=== PATIENT | female | born 1935 | race Caucasian/White ===

== ENCOUNTER 2017-10-25 21:13 | Inpatient (IN) | payer MEDICARE, OTHER ==
[2017-10-25 22:35] LABS: CKMB 1.1 ng/mL (0-6.6)
[2017-10-25 23:08] LABS: Troponin I 0.443 ng/mL (< 0.028)
[2017-10-25] MEDS ORDERED: Nitroglycerin 0.4 MG TAB (25 Tab Bottle) SL PRN (23:38)
[2017-10-25] MEDS ORDERED: Dextrose 5% in Water 1,000 ML IV PRN (23:44)
[2017-10-25] MEDS ORDERED: Dextrose 50% Abboject 50 ML SYRINGE SLOW IVP PRN (23:44)
--- NOTE | 2017-10-26 00:36 | HP ---
PRIMARY CARE PROVIDER: Gen Valdez M.D. CHIEF COMPLAINT: Fall. HISTORY OF PRESENT ILLNESS: Ms. Portillo is a pleasant 81-year-old lady, who was seen at [facility] following transfer from emergency room at [facility]. She reports that she has been "under the weather" for the last several weeks, since Mother's Day when she was treated for recurrent urinary tract infection with 3 different antibiotics. She reports inc reased frequency of urination, but denies any dysuria. Today, she spoke to a friend on the phone. Then, she went to the kitchen to get some water. She fel t nauseous and started vomiting. She stood over and could not stand up properly. She eventually los t balance and fell in a corner. She reports hitting her head. She denies any chest pain, shortness of breath, fevers, or chills. REVIEW OF SYSTEMS: All other systems reviewed and found to be negative. PAST MEDICAL HISTORY: Significant for diabetes mellitus, type 2; dyslipidemia; and hypertension. PAST SURGICAL HISTORY: Tonsillectomy, hysterectomy, tubal ligation, right knee replacement, right an kle surgery, and bilateral cataract surgery. SOCIAL HISTORY: No history of tobacco use, alcohol use, or recreational drug use. FAMILY HISTORY: Her father from myocardial infarction at age 37. CODE STATUS: I discussed her code status. She is DNR. ALLERGIES: PENICILLIN and SULFA. CURRENT MEDICATIONS: Metformin 500 mg 2 times a day, glipizide/metformin 5/500 mg 2 times a day, aml odipine/benazepril 5/20 mg daily, furosemide 20 mg every other day, Crestor 10 mg daily, Glyxambi 25/ 5 mg daily. PHYSICAL EXAMINATION: GENERAL: On examination, Ms. Portillo is awake and alert, not in acute distress. VITAL SIGNS: Blood pressure is 132/54 and pulse is 93. She is breathing at rate of 20 and saturatin g 94% on room air. She is afebrile. EYES: No scleral icterus. No conjunctival pallor. ENT: Moist mucosal membranes. No oropharyngeal erythema or exudates. NECK: Supple, nontender, normal range of movement. Trachea is midline. RESPIRATORY: Accessory muscles of breathing are not active. Chest wall movements are symmetric bila terally. LUNGS: Clear to auscultation without wheeze, rhonchi, or crepitations. CARDIOVASCULAR: S1 and S2 are heard and regular. Peripheral pulses palpable. No carotid bruit, no pericardial rub. NEUROLOGIC: Cranial nerves II-XII intact. Deep tendon reflexes are 2+. MUSCULOSKELETAL: Power is 5/5 in all 4 extremities. SKIN: No rashes or subcutaneous nodules. LYMPHATIC: No cervical lymphadenopathy. PSYCHIATRIC: Normal mood, normal affect, patient is oriented to person, place, and time. LABORATORY DATA: Ms. Portillo's labs and investigations were reviewed. I reviewed her electrocardiogr am, which shows sinus tachycardia, no ST changes to suggest an acute coronary syndrome. I also revie wed her chest x-ray, which does not show any pulmonary infiltrates. She also had a noncontrast CT sc an of the brain at [facility], I do not see a report on file, we will request the report. She had uri nary tract infection with Escherichia coli on 10/13/2017, organism is sensitive to amikacin, cefepime , ceftazidime, ceftriaxone, cefoxitin, gentamicin, meropenem, nitrofurantoin, Zosyn and Septra, but r esistant to fluoroquinolones. Laboratory investigations done at [facility] today show hyponatremia wi th sodium of 135, hypokalemia with potassium 3.1, blood urea nitrogen normal at 15.8, creatinine norm al at 0.8, total bilirubin mildly elevated at 1.3, normal alkaline phosphatase, normal AST, normal AL T, troponin I elevated at 0.369 at [facility], trending up subsequently to 0.443 at this facility, nor mal white count, normal hemoglobin, and normal platelet count. ASSESSMENT AND PLAN: Ms. Portillo is a pleasant 81-year-old lady, who was seen at [facility] on 10/26/2017. Her problem list includes: 1. Elevated troponin I: Could be [id number] myocardial infarction versus demand ischemia seco ndary to urinary tract infection. The emergency room physician has ordered Lovenox. I am waiting fo r CT scan report of the brain from [facility] room before giving her Lovenox. She will be s tarted on aspirin. She will be admitted to telemetry. Cardiology service will be consulted. A 2D e chocardiogram will also be checked. 2. Recurrent urinary tract infection: We will start the patient on ceftriaxone for now, she has aiyana hill received a dose at [facility] without any side effects. We will request fresh urine cultures and urinalysis. 3. Diabetes mellitus, type 2: Start Accu-Cheks, insulin sliding scale. 4. Hypertension: Monitor vital signs, titrate antihypertensives as needed. 5. Dyslipidemia: Continue statin. Many thanks for allowing me to participate in your patient's care. Please feel free to contact me wi th any questions or concerns. LEVEL OF RISK: High. LEVEL OF COMPLEXITY: High.
[2017-10-26] MEDS ORDERED: Enoxaparin Sodium 80 MG/0.8 ML SYRINGE SC SCH (00:45)
[2017-10-26 01:08] VITALS: BMI 24.4
[2017-10-26 01:26] LABS: Critical Call Chem Troponin I RESULT DECREASING; Troponin I 0.419 ng/mL (< 0.028)
[2017-10-26] MEDS: cefTRIAXone\\ROCEPHIN 1 GM in Sodium Chloride 0.9% 100 ML IVPB SCH (01:49)
[2017-10-26 02:11] LABS: Bilirubin Negative (Negative); Blood, Urine Moderate (Negative); Clarity CLOUDY (Clear); Glucose, Urine (Dipstick) >=1000 mg/dL (Negative); Leukocyte Moderate (Negative); Nitrite Positive (Negative); Protein, Urine (Dipstick) 100 mg/dL (Neg-Trace); Specific Gravity, Urine 1.023 (1.002-1.036); Urobilinogen 0.2 mg/dL (0.2-1.0)
[2017-10-26 02:13] LABS: Bacteria/HPF 1+ HPF (None Seen); Hyaline Casts/LPF 0-3 HYALINE CAST LPF (0-3 Hyaline); Squamous Epithelial None Seen HPF (0-3)
[2017-10-26 05:45] LABS: Anion Gap 15 mmol/L (10-20); BUN (Urea Nitrogen) 17 mg/dL (9.8-20.1); Calc. Creatinine Clearance 66 mL/min (70-130); Calcium 8.9 mg/dL (7.8-10.44); Carbon Dioxide 23 mmol/L (23-31); Cardiac Risk 1.8 (Less than 4.5); Chloride 102 mmol/L (98-107); Cholesterol 78 mg/dl (< 200 Desired); Estimated GFR-MDRD 66; Glucose 130 mg/dL (83-110); HDL Cholesterol 43 mg/dL (>60 Neg Risk); LDL Cholesterol, Calculated 25 mg/dL; Potassium 3.1 mmol/L (3.5-5.1); Sodium 137 mmol/L (136-145); Triglycerides 49 mg/dL (Less than 150)
[2017-10-26 05:47] LABS: Troponin I 0.288 ng/mL (< 0.028)
[2017-10-26 05:54] LABS: Band 35 % (5-11); Hemoglobin 10.8 g/dL (12.0-16.0); Lymphocytes 7 % (21-51); MDiff Complete? YES; Mean Corpuscular HGB CONC 33.9 g/dL (32.0-36.0); Mean Corpuscular Hemoglobin 29.8 pg (27.0-31.0); Mean Corpuscular Volume 87.9 fl (81.0-99.0); Mean Platelet Volume 6.2 fL (7.4-10.4); Metamyelocyte 1 % (0-0); Monocytes 6 % (0-10); Neutrophil 51 % (42-75); PLT Morphology Comment Appears Adequate; Platelet Count 166 thou/uL (130-400); RBC Distribution Width 12.5 % (11.5-14.5); Red Blood Cell (RBC) Count 3.61 mill/uL (4.20-5.40); White Blood Cell (WBC) Count 11.4 thou/uL (4.8-10.8)
--- NOTE | 2017-10-26 08:24 | PDOC.PN ---
- Subjective Encounter Start Date: 10/26/17 Encounter Start Time: 08:19 Feeling a little better this morning. Presented with persistent/recurrent UTI growing E. coli on previous cultures. She has been on a several antibiotics, but symptoms and apparently the infection have persisted. She was on Cipro and Keflex without improvement. on 10/24, started with chills and vomiting. Did a little better yesterday until late in the day when symptoms returned. Became very weak. Presented to [facility] ED and transferred here because of elevated troponin. Denies CP. Has had a stress test in the remote past, but nothing recent. Activity is limited due to RA and weakness in her legs. She is able to walk around her yard area with no CP or MARTEL. EKG in [facility] with some lateral ST change that was not diagnostic. Here it looked a little better. Only complaint now is hunger. - Objective Resuscitation Status: Resuscitation Status DNR:Do Not Resuscitate Vital Signs & Weight: Vital Signs (12 hours) Temp Pulse Resp BP Pulse Ox 10/26/17 07:15 99.6 F 80 16 112/53 L 91 L 10/26/17 03:40 99.0 F 79 17 101/49 L 97 10/26/17 00:45 98.3 F 77 14 128/62 93 L Weight Weight 170 lb 1.6 oz Result Diagrams: 10/26/17 04:42 10/26/17 04:42 Additional Labs: Accuchecks 10/26/17 06:11 POC Glucose 123 H Phys Exam - Physical Examination Constitutional: NAD HEENT: PERRLA, oral pharynx no lesions Neck: no JVD, supple Respiratory: no wheezing, no rales, no rhonchi, clear to auscultation bilateral Cardiovascular: RRR, no significant murmur Gastrointestinal: soft, non-tender, no distention, positive bowel sounds Musculoskeletal: no edema NODULAR ARTHROPATHY OF FINGERS C/W RA CHANGES BILATERALLY Neurological: non-focal Psychiatric: normal affect Skin: no rash Dx/Plan (1) UTI (urinary tract infection) Status: Acute Qualifiers: Urinary tract infection type: site unspecified Hematuria presence: without hematuria Qualified Code(s): N39.0 - Urinary tract infection, site not specified Plan: REVIEWED CULTURES. ROCEPHIN SHOULD BE A REASONABLE CHOICE. ADD SOME IVF. FOLLOW UP WITH OUR CULTURE WELL. PATIENT HAS MULTIPLE ANTIBIOTIC ALLERGIES. (2) Elevated troponin Code(s): R74.8 - ABNORMAL LEVELS OF OTHER SERUM ENZYMES Status: Acute Plan: TRENDING DOWNWARD. CARDIOLOGY CONSULT PENDING. EKG NON-DIAGNOSTIC. CONTINUE TELE. RECEIVED AN INITIAL DOSE OF LOVENOX. (3) Nausea & vomiting Code(s): R11.2 - NAUSEA WITH VOMITING, UNSPECIFIED Status: Acute Plan: MAY BE RELATED TO THE INFECTION. CANNOT RULE OUT CARDIAC ETIOLOGY. APPEARS TO BE RESOLVED. 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 SHE HAS EPISODES OF HYPOGLYCEMIA IN AFTERNOONS AND MIDDLE OF THE NIGHT. WILL HOLD ON MEDS FOR NOW AND MONITOR HER SUGARS. SHE IS NPO AWAITING CARDIOLOGY CONSULT. (5) Hyperlipidemia Code(s): E78.5 - HYPERLIPIDEMIA, UNSPECIFIED Status: Acute Plan: CONTINUE WITH HOME MEDS. (6) Rheumatoid arthritis Code(s): M06.9 - RHEUMATOID ARTHRITIS, UNSPECIFIED Status: Acute Qualifiers: Rheumatoid arthritis location: multiple sites Rheumatoid factor presence: unspecified presence Qualified Code(s): M06.9 - Rheumatoid arthritis, unspecified Plan: SHE HAS RA ARTHROPATHY OF THE FINGERS. SHE WAS ON MEDS IN THE PAST, BUT STOPPED THEM. TOO EXPENSIVE. (7) Hypokalemia Code(s): E87.6 - HYPOKALEMIA Status: Acute Plan: IV REPLETION. - Plan * .
[2017-10-26] MEDS ORDERED: Potassium Chloride 40 MEQ in Premix Bag 1 BAG IVPB SCH (08:30)
[2017-10-26] MEDS ORDERED: Amlodipine 5 mg/Benazepril 20 mg CAP PO SCH (09:00)
[2017-10-26] MEDS: Aspirin 325 MG TAB PO SCH (09:07)
[2017-10-26] MEDS: Furosemide 20 MG TAB PO SCH (09:07)
[2017-10-26] MEDS: Potassium Chloride 20 MEQ in Premix Bag 1 BAG IVPB SCH ×2 (09:08→16:32)
[2017-10-26] MEDS: Sodium Chloride 0.9% 1,000 ML IV SCH (09:08)
[2017-10-26] MEDS: Rosuvastatin 10 MG TAB PO SCH (09:08)
[2017-10-26] MEDS: Amlodipine 5 mg/Benazepril 20 mg CAP PO SCH (09:09)
[2017-10-26] MEDS: Enoxaparin Sodium 80 MG/0.8 ML SYRINGE SC SCH ×2 (09:10→20:40)
--- NOTE | 2017-10-26 10:35 | CON ---
DATE OF CONSULTATION: 10/26/2017 HISTORY OF PRESENT ILLNESS: Julieta Portillo is a pleasant 81-year-old white female now transferred from [facility]. She has had problems with recurrent UTIs over the last several weeks. Urine culture on 09/26/2017 grew Streptococcus group B and one on 10/10/2017 grew E. coli. She has been on several rounds of antibiotics. Yesterday, she was in the kitchen and had extreme weak episode accompanied by nausea and vomiting. She denied any shortness of breath, diaphoresis or chest discomfort. Also, she became extremely weak with this and actually fell to the floor. She remembers falling and remembers hitting the floor and states that she did not lose consciousness. She called EMS and she was taken to [facility]. She had abnormal troponin I and is now transferred here. She denies any previous cardiac problems. She denies any history of myocardial infarction or congestive heart failure. She has had no significant chest discomfort or shortness of breath at home. PAST MEDICAL HISTORY: Remarkable for diabetes, hypertension, and hypercholesterolemia. OPERATIONS: Tonsillectomy, hysterectomy, tubal ligation, total right knee replacement, right ankle ORIF and bilateral cataract removal. MEDICATIONS AT HOME: Include amlodipine/benazepril 5/20 q.a.m., empagliflozin/ linagliptin 25/5 daily, glipizide/metformin 1 b.i.d., furosemide 20 mg every other day, metformin 500 mg b.i.d. and rosuvastatin 10 mg daily. ALLERGIES: PENICILLIN and SULFA. SOCIAL HISTORY: She stopped smoking 40 years ago. FAMILY HISTORY: Remarkable for father who is diabetic and of a myocardial infarction at age 37. REVIEW OF SYSTEMS: Twelve-point review of systems otherwise unremarkable. PHYSICAL EXAMINATION: VITAL SIGNS: 112/53, pulse of 80. HEENT: PERRL. NECK: Supple. CHEST: Clear. CARDIAC: S1 and S2 are normal without any S3, S4 or murmurs. Carotid upstrokes are normal without bruits. ABDOMEN: Normal bowel sounds without tenderness or organomegaly. EXTREMITIES: Revealed no clubbing, cyanosis or edema. NEUROLOGIC: Grossly intact. SKIN: Warm and dry. IMAGING DATA AND LABORATORY DATA: EKG from [facility] revealed sinus tachycardia with rate of 107 per minute with slight downsloping of the ST segments, V3 through V6. EKG here reveals normal sinus rhythm with minimal voltage criteria for LVH. No significant ST changes. Hemoglobin 10.8, hematocrit 41.7, white count 11,400, platelets 166,000. Sodium 137, potassium 3.1, chloride 102, carbon dioxide 23, BUN 17, creatinine 0.83. Troponin I was 0.443 at admission and has trended downward. Cholesterol 78, triglycerides 49, HDL 43 and LDL 25. Urinalysis reveals 1+ bacteria, greater than 50 wbc's, 7-10 rbc's, positive nitrite, moderate blood. IMPRESSION: 1. Recurrent urinary tract infection. She has been placed on Rocephin. 2. Elevated troponin I, which could be due to demand ischemia from her urinary tract infection versus non-ST elevated myocardial infarction. 3. Diabetes. 4. Hypercholesterolemia. 5. Hypertension. 6. Positive family history. 7. Distant smoker. PLAN: EKG will be repeated. Echocardiogram will be performed to assess left ventricular function. She will undergo adenosine Cardiolite testing. [facility] CENTER[facility]ty
[2017-10-26] MEDS ORDERED: ADENOSINE 60 MG/20 ML VIAL ONE (15:29)
[2017-10-26] MEDS ORDERED: Potassium Chloride 20 MEQ in Premix Bag 1 BAG IVPB SCH (16:30)
--- NOTE | 2017-10-26 16:34 | NM ---
MYOCARDIAL PERFUSION EVALUATION 10/26/17 INDICATION: Chest pain. RADIOPHARMACEUTICAL: Stress only myocardial perfusion evaluation. INDICATION: Chest pain. RADIOPHARMACEUTICAL: 28.4 millicuries technetium 99m Sestamibi IV. FINDINGS: No focal radiotracer defect is evident. There is normal wall motion thickening. Estimated LVEF is 80% . IMPRESSION: Normal stress only myocardial perfusion evaluation. POS: MARISABEL
[2017-10-26] MEDS: HumaLOG 300 UNITS/3 ML VIAL SC PRN (17:36)
[2017-10-27] MEDS: Sodium Chloride 0.9% 1,000 ML IV SCH ×3 (02:01→16:42)
[2017-10-27] MEDS: cefTRIAXone\\ROCEPHIN 1 GM in Sodium Chloride 0.9% 100 ML IVPB SCH (02:05)
[2017-10-27 05:14] LABS: Anion Gap 14 mmol/L (10-20); BUN (Urea Nitrogen) 17 mg/dL (9.8-20.1); Calc. Creatinine Clearance 77 mL/min (70-130); Calcium 8.5 mg/dL (7.8-10.44); Carbon Dioxide 22 mmol/L (23-31); Chloride 106 mmol/L (98-107); Estimated GFR-MDRD 79; Glucose 142 mg/dL (83-110); Potassium 3.5 mmol/L (3.5-5.1); Sodium 138 mmol/L (136-145)
[2017-10-27 05:40] LABS: Band 10 % (5-11); Dohle Bodies SLIGHT; Hemoglobin 10.2 g/dL (12.0-16.0); Lymphocytes 11 % (21-51); MDiff Complete? YES; Mean Corpuscular HGB CONC 33.5 g/dL (32.0-36.0); Mean Corpuscular Hemoglobin 29.4 pg (27.0-31.0); Mean Platelet Volume 6.2 fL (7.4-10.4); Monocytes 8 % (0-10); Neutrophil 69 % (42-75); PLT Morphology Comment Appears Adequate; Platelet Count 168 thou/uL (130-400); RBC Distribution Width 12.5 % (11.5-14.5); RBC Morphology Normal; Reactive Lymphocytes 2 % (0-10); Red Blood Cell (RBC) Count 3.47 mill/uL (4.20-5.40); White Blood Cell (WBC) Count 10.4 thou/uL (4.8-10.8)
[2017-10-27] MEDS: Rosuvastatin 10 MG TAB PO SCH (08:40)
[2017-10-27] MEDS: Enoxaparin Sodium 80 MG/0.8 ML SYRINGE SC SCH ×2 (08:40→21:12)
[2017-10-27] MEDS: Amlodipine 5 mg/Benazepril 20 mg CAP PO SCH (08:40)
[2017-10-27] MEDS: Aspirin 325 MG TAB PO SCH (08:40)
--- NOTE | 2017-10-27 09:31 | PDOC.PN ---
- Subjective Encounter Start Date: 10/27/17 Encounter Start Time: 09:29 DOING WELL. NO COMPLAINTS TODAY. - Objective Resuscitation Status: Resuscitation Status DNR:Do Not Resuscitate MAR Reviewed: Yes Vital Signs & Weight: Vital Signs (12 hours) Temp Pulse Resp BP Pulse Ox 10/27/17 07:35 97.9 F 78 16 135/63 94 L 10/27/17 04:00 98.7 F 71 14 121/58 L 92 L 10/27/17 01:09 94 L Weight Admit Weight 170 lb 1.6 oz Weight 170 lb 1.6 oz Result Diagrams: 10/27/17 04:23 10/27/17 04:23 Additional Labs: Accuchecks 10/27/17 10/26/17 10/26/17 06:17 21:01 17:07 POC Glucose 140 H 217 H 296 H 10/26/17 11:02 POC Glucose 83 Phys Exam - Physical Examination Constitutional: NAD Neck: no JVD, supple Respiratory: no wheezing, no rales, no rhonchi, clear to auscultation bilateral Cardiovascular: RRR, no significant murmur Gastrointestinal: soft, non-tender, no distention, positive bowel sounds Musculoskeletal: no edema Psychiatric: normal affect Dx/Plan (1) UTI (urinary tract infection) Status: Acute Qualifiers: Urinary tract infection type: site unspecified Hematuria presence: without hematuria Qualified Code(s): N39.0 - Urinary tract infection, site not specified Plan: GROWING E.COLI ON THE OUTPATIENT CULTURE. OURS STILL PENDING. SENSITIVE TO ROCEPHIN. ONLY ORAL OPTION IS MACROBID, BUT NOT INDICATED FOR SYSTEM INFECTION WHICH THIS PATIENT HAS BASED UPON HER PRESENTATION. PLAN FOR 10 DAYS OF IV ROCEPHIN @ 1 GRAM/DAY. (2) Elevated troponin Code(s): R74.8 - ABNORMAL LEVELS OF OTHER SERUM ENZYMES Status: Acute Plan: NEGATIVE STRESS TEST AND ECHO LOOKED GOOD OTHER THAN TR. ANTICIPATE TRANSFER TO MEDICAL FLOOR OFF TELE. AWAIT CARDIOLOGY. (3) Nausea & vomiting Code(s): R11.2 - NAUSEA WITH VOMITING, UNSPECIFIED Status: Resolved (4) Diabetes Code(s): E11.9 - TYPE 2 DIABETES MELLITUS WITHOUT COMPLICATIONS Status: Acute Qualifiers: Diabetes mellitus type: type 2 Diabetes mellitus senior care insulin use: without senior care use Diabetes mellitus complication status: without complication Qualified Code(s): E11.9 - Type 2 diabetes mellitus without complications Plan: ADEQUATE CONTROL. NO CHANGE. (5) Hyperlipidemia Code(s): E78.5 - HYPERLIPIDEMIA, UNSPECIFIED Status: Chronic (6) Rheumatoid arthritis Code(s): M06.9 - RHEUMATOID ARTHRITIS, UNSPECIFIED Status: Chronic Qualifiers: Rheumatoid arthritis location: multiple sites Rheumatoid factor presence: unspecified presence Qualified Code(s): M06.9 - Rheumatoid arthritis, unspecified - Plan * CONSULT CASE MANAGEMENT TO SEE IF WE CAN GET IV ABX AT HOME. * PICC LINE.
[2017-10-27] MEDS: HumaLOG 300 UNITS/3 ML VIAL SC PRN (11:51)
--- NOTE | 2017-10-27 15:00 | PDOC.EVN ---
Event Note - Event Note Event Note: AT THE PATIENT'S REQUEST, I DISCUSSED THE PATIENT'S MEDICAL SITUATION WITH HER DAUGHTER AND SON. THE PATIENT ALSO INDICATED THAT SHE HAS A "DROPPED BLADDER" AND SHE WAS TO SEE A UROLOGIST IN LIGHT OF HER RECURRENT UTI'S. SHE REQUESTED THAT I CONSULT A UROLOGIST WHILE SHE IS HERE. ADDITIONAL TIME 15 MIN.
[2017-10-27] MEDS: Acetaminophen 325 MG TAB PO PRN (21:15)
[2017-10-28] MEDS: cefTRIAXone\\ROCEPHIN 1 GM in Sodium Chloride 0.9% 100 ML IVPB SCH (01:55)
[2017-10-28] MEDS: Furosemide 20 MG TAB PO SCH (08:19)
[2017-10-28] MEDS: Aspirin 325 MG TAB PO SCH (08:20)
[2017-10-28] MEDS: Rosuvastatin 10 MG TAB PO SCH (08:20)
[2017-10-28] MEDS: Amlodipine 5 mg/Benazepril 20 mg CAP PO SCH (08:53)
[2017-10-28] MEDS: Acetaminophen 325 MG TAB PO PRN ×2 (08:53→21:23)
[2017-10-28] MEDS: Enoxaparin Sodium 80 MG/0.8 ML SYRINGE SC SCH ×2 (08:54→21:16)
[2017-10-28] MEDS: HumaLOG 300 UNITS/3 ML VIAL SC PRN ×2 (12:07→16:55)
[2017-10-28 12:41] LABS: #Eosinphils 0.1 thou/uL (0.0-0.7); #Lymphocytes 1.1 thou/uL (1.20-3.40); #Monocytes 0.5 thou/uL (0.11-0.59); #Neutrophils 4.8 thou/uL (1.40-6.50); %Basophils 0.7 % (0.0-1.0); %Eosinophils 1.5 % (0.0-10.0); %Lymphocytes 16.3 % (21.0-51.0); %Monocytes 7.9 % (0.0-10.0); %Neutrophils 73.7 % (42.0-75.0); Mean Corpuscular HGB CONC 34.3 g/dL (32.0-36.0); Mean Corpuscular Hemoglobin 29.8 pg (27.0-31.0); Mean Corpuscular Volume 86.9 fl (81.0-99.0); Mean Platelet Volume 6.1 fL (7.4-10.4); Platelet Count 205 thou/uL (130-400); RBC Distribution Width 12.4 % (11.5-14.5); Red Blood Cell (RBC) Count 4.03 mill/uL (4.20-5.40); White Blood Cell (WBC) Count 6.6 thou/uL (4.8-10.8)
--- NOTE | 2017-10-28 14:56 | PDOC.PN ---
- Subjective Encounter Start Date: 10/28/17 Encounter Start Time: 11:15 PAtient is seen wil burgos and christian. She is doing good, She is not wanting to go on PICC line. pt was told she will be on picc line for Bacteremia, pt has no blood Cultures, WBC is Normal E coli is sentive to Omnicef. - Objective Resuscitation Status: Resuscitation Status DNR:Do Not Resuscitate MAR Reviewed: Yes Vital Signs & Weight: Vital Signs (12 hours) Temp Pulse Resp BP BP Pulse Ox 10/28/17 08:27 98.4 F 75 18 96 10/28/17 07:46 98.4 F 75 18 164/71 H 96 10/28/17 05:07 98.4 F 71 20 136/65 90 L Weight Admit Weight 170 lb 1.6 oz Weight 170 lb 1.6 oz I&O: 10/27/17 10/28/17 10/29/17 06:59 06:59 06:59 Intake Total 340 Balance 340 Result Diagrams: 10/28/17 12:25 10/27/17 04:23 Additional Labs: Accuchecks 10/28/17 10/28/17 10/27/17 10:59 05:11 16:57 POC Glucose 298 H 139 H 159 H Radiology Reviewed by me: Yes Phys Exam - Physical Examination HEENT: PERRLA, moist MMs Neck: no nodes, no JVD Respiratory: no wheezing, no rales Cardiovascular: RRR, no significant murmur Gastrointestinal: soft, non-tender Musculoskeletal: no edema, pulses present Neurological: non-focal, normal sensation Lymphatic: no nodes Psychiatric: normal affect Dx/Plan (1) Sepsis Code(s): A41.9 - SEPSIS, UNSPECIFIED ORGANISM Status: Acute Comment: WBC is Down, No Blood Cultures, Will order now, Will COntinue on Rocephin today, can transition to PO Omnicef and plan dischagre tomorrow. 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 (3) UTI (urinary tract infection) Status: Acute Qualifiers: Urinary tract infection type: site unspecified Hematuria presence: without hematuria Qualified Code(s): N39.0 - Urinary tract infection, site not specified Comment: Ecoli, WBC is Normal, pt on Rpocephin, Will change to Omnicef in Am. (4) Hyperlipidemia Code(s): E78.5 - HYPERLIPIDEMIA, UNSPECIFIED Status: Chronic (5) Rheumatoid arthritis Code(s): M06.9 - RHEUMATOID ARTHRITIS, UNSPECIFIED Status: Chronic Qualifiers: Rheumatoid arthritis location: multiple sites Rheumatoid factor presence: unspecified presence Qualified Code(s): M06.9 - Rheumatoid arthritis, unspecified - Plan cont current plan of care, continue antibiotics, PT/OT, social work faculty member, respiratory therapy, incentive spirometry, DVT proph w/lovenox * . Review of Systems - Review of Systems Eyes: negative: Pain, Vision Change, Conjunctivae Inflammation, Eyelid Inflammation, Redness, Other Respiratory: negative: Cough, Dry, Shortness of Breath, Hemoptysis, SOB with Excertion, Pleuritic Pain, Sputum, Wheezing Cardiovascular: negative: chest pain, palpitations, orthopnea, paroxysmal nocturnal dyspnea, edema, light headedness, other Gastrointestinal: negative: Nausea, Vomiting, Abdominal Pain, Diarrhea, Constipation, Melena, Hematochezia, Other Musculoskeletal: negative: Neck Pain, Shoulder Pain, Arm Pain, Back Pain, Hand Pain, Leg Pain, Foot Pain, Other Skin: negative: Rash, Lesions, Art, Bruising, Other - Medications/Allergies Allergies/Adverse Reactions: Allergies Allergy/AdvReac Type Severity Reaction Status Date / Time Penicillins Allergy Verified 10/26/17 03:19 Sulfa (Sulfonamide Allergy Verified 10/26/17 03:19 Antibiotics) Medications: Current Medications Acetaminophen (Tylenol) 650 mg PO Q4H PRN PRN Reason: Headache/Fever or Pain Last Admin: 10/28/17 08:53 Dose: 650 mg Amlodipine/Benazepril HCl (Lotrel 09/30) 1 cap PO DAILY [facility] Last Admin: 10/28/17 08:53 Dose: 1 cap Aspirin (Aspirin) 325 mg PO DAILY [facility] Last Admin: 10/28/17 08:20 Dose: 325 mg Dextrose/Water (Dextrose 50%) 25 gm SLOW IVP PRN PRN PRN Reason: Hypoglycemia Enoxaparin Sodium (Lovenox) 80 mg SC Q12HR [facility] Last Admin: 10/28/17 08:54 Dose: 80 mg Furosemide (Lasix) 20 mg PO Q2DAYS [facility] Last Admin: 10/28/17 08:19 Dose: 20 mg Glucagon (Glucagon) 1 mg IM PRN PRN PRN Reason: Hypoglycemia Dextrose/Water (D5w) 1,000 mls @ 0 mls/hr IV .Q0M PRN; As Directed PRN Reason: Hypoglycemia Ceftriaxone Sodium 1 gm/ (Sodium Chloride) 100 mls @ 200 mls/hr IVPB Q24HR [facility] Last Admin: 10/28/17 01:55 Dose: 100 mls Insulin Human Lispro (Humalog) 0 units SC .MILD SLIDING SCALE PRN PRN Reason: Mild Correctional Scale Last Admin: 10/28/17 12:07 Dose: 4 unit Nitroglycerin (Nitrostat) 0.4 mg SL Q5MIN PRN PRN Reason: Chest Pain Rosuvastatin Calcium (Crestor) 10 mg PO DAILY [facility] Last Admin: 10/28/17 08:20 Dose: 10 mg Sodium Chloride (Flush - Normal Saline) 10 ml IVF Q12HR [facility] Last Admin: 10/28/17 08:20 Dose: Not Given Sodium Chloride (Flush - Normal Saline) 10 ml IVF PRN PRN PRN Reason: Saline Flush
[2017-10-28] MEDS ORDERED: Cefdinir 300 MG CAP PO SCH (21:00)
[2017-10-29] MEDS: Sodium Chloride 0.9% 1,000 ML IV SCH (00:39)
[2017-10-29] MEDS: Aspirin 325 MG TAB PO SCH (08:57)
[2017-10-29] MEDS: Rosuvastatin 10 MG TAB PO SCH (08:57)
[2017-10-29] MEDS: Amlodipine 5 mg/Benazepril 20 mg CAP PO SCH (08:57)
[2017-10-29] MEDS ORDERED: METFORMIN HCL PO SCH (09:00)
[2017-10-29] MEDS ORDERED: Enoxaparin Sodium 40 MG/0.4 ML SYRINGE SC SCH (09:00)
[2017-10-29] MEDS ORDERED: Nitrofurantoin Monohyd/M-Cryst 100 MG CAP PO SCH (09:00)
[2017-10-29] MEDS ORDERED: GLIPIZIDE PO SCH (09:00)
--- NOTE | 2017-10-29 11:19 | PQF ---
CLINICAL DOCUMENTATION IMPROVEMENT CLARIFICATION FORM: ICD-10 Updated PLEASE DO AN ADDENDUM TO THE PROGRESS NOTE WITH ANY DOCUMENTATION UPDATES OR ADDITIONS AND CARRY THROUGH TO DC SUMMARY. THANK YOU. DATE: 10/29/17 ATTN: Dr. Bell Please exercise your independent, professional judgment in responding to the clarification form. Clinical indicators are provided on the bottom of this form for your review Please check appropriate box(s): AMI TYPE: [ ] NSTEMI [ ] AMI Type II [ x ] Demand ischemia [ ] Other diagnosis [ ] Unable to determine In addition, please specify: Present on Admission (POA): [ x ] Yes [ ] No [ ] Unable to determine CLINICAL INDICATORS - SIGNS / SYMPTOMS / LABS H&P 10/26: TROPONIN I ELEVATED AT 0.369 AT [facility], TRENDING UP SUBSEQUENTLY TO 0.443 AT THIS FACILITY ELEVATED TROPONIN I: COULD BE NON-STEMI VS DEMAND ISCHEMIA SECONDARY TO UTI. CARDIOLOGY CONSULT 10/26: EKG FROM [facility] REVEALED SINUS TACHYCARDIA W/ RATE 107 PER MIN. W/ SLIGHT DOWNSLOPING OF THE ST SEGMENTS, V3 THROUGH V6. EKG HERE REVEALS NORMAL SR W/ MINIMAL VOLTAGE CRITERIA FOR LVH. TROPONIN I WAS 0.443 AT ADMISSION & HAS TRENDED DOWNWARD. IMPRESSION: RECURRENT UTI ELEVATED TROPONIN I, WHICH COULD BE D/T DEMAND ISCHEMIA FROM HER UTI VS NON- STEMI. PN 10/28: SEPSIS, ACUTE. UTI. ACUTE. ECOLI, WBC IS NORMAL RISKS: H&P; 81 Y.O. RECURRENT UTI. DM 2. HTN [facility] 10/29: LOVENOX SQ 40 MG 0900 CPOE 10/25: ASPIRIN 325 MG PO DAILY Thank you, Charlette (This form is maintained as a part of the permanent medical record) 2015 [employer]. All Rights Reserved Charlette Seay RN, BSN [email or web address] Office: [phone] [facility]
[2017-10-29 11:34] VITALS: BP 123/67; TEMP 98
[2017-10-29] MEDS: HumaLOG 300 UNITS/3 ML VIAL SC PRN (11:46)
--- NOTE | 2017-10-29 11:50 | PDOC.PN ---
- Subjective Encounter Start Date: 10/29/17 Encounter Start Time: 08:30 -: old records requested/rev Patient seen and examined for UTI. No new complaints. No overnight events - Objective Resuscitation Status: Resuscitation Status DNR:Do Not Resuscitate MAR Reviewed: Yes Vital Signs & Weight: Vital Signs (12 hours) Temp Pulse Resp BP Pulse Ox 10/29/17 11:31 98.0 F 94 16 123/67 94 L 10/29/17 08:00 98.5 F 69 18 10/29/17 07:34 98.5 F 69 18 157/78 H 95 10/29/17 04:56 95 Weight Admit Weight 170 lb 1.6 oz Weight 170 lb 1.6 oz I&O: 10/28/17 10/29/17 10/30/17 06:59 06:59 06:59 Intake Total 340 1400 Balance 340 1400 Result Diagrams: 10/28/17 12:25 10/27/17 04:23 Additional Labs: Accuchecks 10/29/17 10/29/17 10/28/17 11:18 03:22 21:29 POC Glucose 303 H 202 H 175 H 10/28/17 16:10 POC Glucose 245 H Phys Exam - Physical Examination Constitutional: NAD HEENT: PERRLA, moist MMs, sclera anicteric Neck: no JVD, supple Respiratory: no wheezing, no rales, no rhonchi Cardiovascular: RRR, no significant murmur, no rub Gastrointestinal: soft, non-tender, no distention, positive bowel sounds Musculoskeletal: no edema, pulses present Neurological: non-focal, normal sensation, moves all 4 limbs Lymphatic: no nodes Psychiatric: normal affect, A&O x 3 Skin: no rash, normal turgor Dx/Plan (1) Demand ischemia of myocardium Code(s): I24.8 - OTHER FORMS OF ACUTE ISCHEMIC HEART DISEASE Status: Acute (2) Sepsis Code(s): A41.9 - SEPSIS, UNSPECIFIED ORGANISM Status: Acute Comment: (3) UTI (urinary tract infection) Status: Acute Qualifiers: Urinary tract infection type: site unspecified Hematuria presence: without hematuria Qualified Code(s): N39.0 - Urinary tract infection, site not specified Comment: (4) Diabetes type 2, controlled Code(s): E11.9 - TYPE 2 DIABETES MELLITUS WITHOUT COMPLICATIONS Status: Chronic (5) Hyperlipidemia Code(s): E78.5 - HYPERLIPIDEMIA, UNSPECIFIED Status: Chronic (6) Rheumatoid arthritis Code(s): M06.9 - RHEUMATOID ARTHRITIS, UNSPECIFIED Status: Chronic Qualifiers: Rheumatoid arthritis location: multiple sites Rheumatoid factor presence: unspecified presence Qualified Code(s): M06.9 - Rheumatoid arthritis, unspecified (7) Severe tricuspid regurgitation Code(s): I07.1 - RHEUMATIC TRICUSPID INSUFFICIENCY Status: Chronic (8) Hypokalemia Code(s): E87.6 - HYPOKALEMIA Status: Resolved - Plan cont current plan of care, continue antibiotics * medication reviewed as below * symptomatic treatment * stable for discharge on macrobid. * add metoprolol 12.5 mg po bid Review of Systems - Review of Systems Eyes: negative: Pain, Vision Change, Conjunctivae Inflammation, Eyelid Inflammation, Redness, Other ENT: negative: Ear Pain, Ear Discharge, Nose Pain, Nose Discharge, Nose Congestion, Mouth Pain, Mouth Swelling, Throat Pain, Throat Swelling, Other Cardiovascular: negative: chest pain, palpitations, orthopnea, paroxysmal nocturnal dyspnea, edema, light headedness, other Gastrointestinal: negative: Nausea, Vomiting, Abdominal Pain, Diarrhea, Constipation, Melena, Hematochezia, Other Genitourinary: negative: Dysuria, Frequency, Incontinence, Hematuria, Retention , Other Musculoskeletal: negative: Neck Pain, Shoulder Pain, Arm Pain, Back Pain, Hand Pain, Leg Pain, Foot Pain, Other Skin: negative: Rash, Lesions, Art, Bruising, Other - Medications/Allergies Allergies/Adverse Reactions: Allergies Allergy/AdvReac Type Severity Reaction Status Date / Time Penicillins Allergy Verified 10/26/17 03:19 Sulfa (Sulfonamide Allergy Verified 10/26/17 03:19 Antibiotics) Medications: Current Medications Acetaminophen (Tylenol) 650 mg PO Q4H PRN PRN Reason: Headache/Fever or Pain Last Admin: 10/28/17 21:23 Dose: 650 mg Amlodipine/Benazepril HCl (Lotrel 09/30) 1 cap PO DAILY [facility] Last Admin: 10/29/17 08:57 Dose: 1 cap Aspirin (Aspirin) 325 mg PO DAILY [facility] Last Admin: 10/29/17 08:57 Dose: 325 mg Dextrose/Water (Dextrose 50%) 25 gm SLOW IVP PRN PRN PRN Reason: Hypoglycemia Enoxaparin Sodium (Lovenox) 40 mg SC 0900 [facility] Last Admin: 10/29/17 08:58 Dose: 40 mg Furosemide (Lasix) 20 mg PO Q2DAYS [facility] Last Admin: 10/28/17 08:19 Dose: 20 mg Glipizide (Glucotrol) 5 mg PO BID[facility] Glucagon (Glucagon) 1 mg IM PRN PRN PRN Reason: Hypoglycemia Dextrose/Water (D5w) 1,000 mls @ 0 mls/hr IV .Q0M PRN; As Directed PRN Reason: Hypoglycemia Insulin Human Lispro (Humalog) 0 units SC .MILD SLIDING SCALE PRN PRN Reason: Mild Correctional Scale Last Admin: 10/28/17 16:55 Dose: 3 unit Metformin [facility] (Glucophage) [facility] Nitrofurantoin Macrocrystals (Macrobid) 100 mg PO BID [facility] Last Admin: 10/29/17 08:57 Dose: 100 mg Nitroglycerin (Nitrostat) 0.4 mg SL Q5MIN PRN PRN Reason: Chest Pain Rosuvastatin Calcium (Crestor) 10 mg PO DAILY [facility] Last Admin: 10/29/17 08:57 Dose: 10 mg Sodium Chloride (Flush - Normal Saline) 10 ml IVF Q12HR [facility] Last Admin: 10/29/17 10:12 Dose: 10 ml Sodium Chloride (Flush - Normal Saline) 10 ml IVF PRN PRN PRN Reason: Saline Flush
--- NOTE | 2017-10-29 12:04 | PQF ---
CLINICAL DOCUMENTATION IMPROVEMENT CLARIFICATION FORM: ICD-10 Updated PLEASE DO AN ADDENDUM TO THE PROGRESS NOTE WITH ANY DOCUMENTATION UPDATES OR ADDITIONS AND CARRY THROUGH TO DC SUMMARY. THANK YOU. DATE: 10/29/17 ATTN: Dr. Bell Please exercise your independent, professional judgment in responding to the clarification form. Clinical indicators are provided on the bottom of this form for your review Diagnosis: ____SEPSIS (PN 10/28/17) _ Present on Admission (POA): [ x ] Yes [ ] No [ ] Unable to determine Coding guidelines require hospitals to identify whether a diagnosis was present on admission (POA) or not. To accurately assign the appropriate POA indicator, this information must be clearly documented within the medical record. CLINICAL INDICATORS - SIGNS / SYMPTOMS / LABS H&P 10/26: BP 132/54, PULSE 93, BREATHING AT RATE OF 20 & SATURATING 94% RA LAB 10/26: BAND NEUTROPHILS: 35 PN 10/28: SEPSIS, ACUTE. UTI. ACUTE. ECOLI, WBC IS NORMAL RISKS: URINE CULTURE 10/25: ESCHERICHIA COLI H&P: 10/26. 81 Y.O. RECURRENT UTI. DM 2. HTN TREATMENT: CPOE 10/26: ROCEPHIN 1 GM IV Q 24 HR. DISCONTINUED 10/28. CPOE 10/29: MACROBID 100 MG PO BID. (This form is maintained as a part of the permanent medical record) 2014 [employer] All Rights Reserved Charlette Seay RN, BSN [email or web address] Office: [phone] [facility]ITAL[facility]
--- NOTE | 2017-10-29 13:27 | DIS ---
PRIMARY CARE PHYSICIAN: Dr. Cayden Valdez DATE OF ADMISSION: 10/25/2017 DATE OF DISCHARGE: 10/29/2017 DISCHARGE DISPOSITION: Home. PRIMARY DISCHARGE DIAGNOSES: 1. Sepsis due to urinary tract infection. 2. Demand ischemia of myocardium. 3. Hypokalemia. SECONDARY DISCHARGE DIAGNOSES: Severe tricuspid regurgitation, rheumatoid arthritis, hypertension, d yslipidemia, diabetes type 2. PRIMARY PROCEDURES/OPERATIONS: None. RADIOLOGICAL INVESTIGATION: Stress test negative for any ischemia. Echocardiography showed severe t ricuspid regurgitation. SIGNIFICANT LABORATORY DATA: WBC 6.6, hemoglobin 12.0, platelet 205. Sodium 138, creatinine 0.71, L DL 25. Troponin 0.419. Urinalysis suggestive of UTI. Urine culture grew E. coli. Blood culture ne gative. DISCHARGE MEDICATIONS: Macrobid 100 mg twice daily for 10 days, metoprolol 12.5 mg twice daily, aspi rin 81 mg p.o. daily, Lotrel 5/20 one tablet p.o. daily, empagliflozin linagliptin one tablet p.o. da eloy, Lasix 20 mg every other day, metformin 500 mg p.o. b.i.d., glipizide with metformin 5/500 one ta blet b.i.d., Crestor 10 mg p.o. daily. CONTRAINDICATIONS: None. CODE STATUS: FULL CODE. INPATIENT CONSULTANTS: None. ALLERGIES: PENICILLIN and SULFA DRUGS. DISCHARGE PLAN: Post hospital, the patient will follow up with primary care physician in 1 week. HOSPITAL COURSE: An 81-year-old female with the above-mentioned medical problems who was admitted by Dr. Mckenzie on 10/26/2017. Please see his H&P for further details. The patient had a mechanical fall at home. She was experiencing vague UTI symptoms. The patient was admitted to telemetry floor. On admission, she had a significantly abnormal troponin. Her urinalysis was suggestive of UTI. Her in itial investigation at [facility] including CT brain was unremarkable. She was admitte d to telemetry floor and after that we obtained echocardiography which showed severe tricuspid regurg itation and normal EF. Cardiology was consulted for elevated troponin which was attributed to be due to demand ischemia. She underwent stress test that was normal. Upon stress test normal, she was tra nsferred to medical floor. While in hospital, she was getting antibiotic therapy and based on cultur e result, we changed to Macrobid. Her blood culture was negative. The patient is seen and examined at bedside today. While in hospital, she was hemodynamically stable , afebrile, tolerating p.o. well and ambulatory. Please see my progress note from today for further details.
[2017-10-29] MEDS ORDERED: glipiZIDE 5 MG TAB PO SCH (16:30)
[2017-10-29] MEDS ORDERED: metFORMIN 500 MG TAB PO SCH ×2 (17:00)
== END 2017-10-29 12:27 | disposition home or self-care (01) | DRG 872 ==
LOC: ERS 21:13 → 2NO 23:30 → T4-A 10-27 15:57
PROVIDERS: ADMIT Internal Medicine; ATTEND Internal Medicine
DX: A41.51 Sepsis due to Escherichia coli [E. coli] (principal); N39.0 Urinary tract infection, site not specified; I24.8 Other forms of acute ischemic heart disease; I10 Essential (primary) hypertension; E78.5 Hyperlipidemia, unspecified; E11.9 Type 2 diabetes mellitus without complications; E87.6 Hypokalemia; I07.1 Rheumatic tricuspid insufficiency; M06.9 Rheumatoid arthritis, unspecified; Z66 Do not resuscitate; Z87.891 Personal history of nicotine dependence; Z88.0 Allergy status to penicillin; Z88.2 Allergy status to sulfonamides; Z79.84 Long term (current) use of oral hypoglycemic drugs; Z79.899 Other long term (current) drug therapy; Z96.651 Presence of right artificial knee joint
CPT/HCPCS: 36415; 36416; 78452; 80048; 80061; 81003; 81015; 82553; 84484; 85025; 87040; 87077; 87086; 87186; 93005; 93010; 93017; 93306; 93798; 94760; A4216; A9500; J0153; J0696; J1650; J3480; J7050